=== PATIENT | female | born 1980 | race Caucasian/White ===

== ENCOUNTER → 2016-11-18 | Outpatient (CLI) | payer BC ==
--- NOTE | 2016-11-18 21:04 | MR ---
MRI of the brain with and without contrast HISTORY: Headaches. TECHNIQUE: T1-weighted sagittal, T2, FLAIR, and diffusion axial, postcontrast T1 axial and coronal vi ews of the brain are submitted. CONTRAST: 20 mL MultiHance FINDINGS: There is no evidence of acute ischemia. The ventricles, basal cisterns, and sulci overlying the co nvexities are consistent with the patient's age. There is no mass effect or enhancing mass. Craniocervical junction maintained. Sella turcica has a normal appearance. No evidence of cerebellopo ntine angle mass. Changes of chronic sinusitis. WHITE MATTER: There are approximately 5 focal areas of abnormal signal within the white matter all measuring less t stallings 5 mm. No callosal lesions. No lesions perpendicular to the ventricular system. No enhancing lesio ns. IMPRESSION: 1. No acute intracranial process. 2. Minimal nonspecific white matter changes. No enhancing lesions.
== END | disposition home or self-care (01) ==
LOC: RADMRIMAIN 19:32
PROVIDERS: ATTEND Psychiatry & Neurology Neurology
DX: R90.82 White matter disease, unspecified (principal)
CPT/HCPCS: 70553; A9577

== ENCOUNTER → 2016-12-15 | Outpatient (CLI) | payer BC ==
[2016-12-15 19:42] LABS: Appearance,CSF Clear
[2016-12-19 16:23] LABS: Lyme Specimen Source Not Provided
== END | disposition home or self-care (01) ==
LOC: LABWHC1 13:39
PROVIDERS: ATTEND Psychiatry & Neurology Pain Medicine
DX: H53.2 Diplopia (principal); R53.83 Other fatigue; R90.82 White matter disease, unspecified; R42 Dizziness and giddiness
CPT/HCPCS: 36415; 82040; 82042; 82784; 83873; 83916; 84157; 87476; 88108; 89050

== ENCOUNTER 2017-03-06 19:14 | Emergency (ER) | payer BC ==
[2017-03-06 19:26] VITALS: RESP 18
--- NOTE | 2017-03-06 21:15 | XR ---
EXAMINATION TYPE: XR abdomen 2V DATE OF EXAM: 03/06/2017 COMPARISON: NONE HISTORY: Left flank pain TECHNIQUE: 3 views FINDINGS: Bowel gas pattern is normal. There is no sign of intestinal obstruction or pneumoperitoneum . Fecal pattern is normal. Lung bases are clear. There are no pathologic calcifications. IMPRESSION: Nonacute abdomen.
[2017-03-06 21:19] LABS: Amorphous Sediment,Urine Rare /hpf; Appearance,Urine Cloudy (Clear); Bilirubin,Urine Negative (Negative); Glucose,Urine (UA) Negative (Negative); Ketones,Urine Negative (Negative); Leukocyte Esterase,Urine Negative (Negative); Nitrite,Urine Negative (Negative); Particle Count 9282; Protein,Urine Negative (Negative); Specific Gravity,Urine 1.013 (1.001-1.035); Squamous Epithelial Cell,Urine 1 /hpf (0-4); UA Billing (MACRO vs. MICRO) MICRO; Urobilinogen,Urine <2.0 mg/dL (<2.0)
[2017-03-06 21:21] LABS: Basophils # (A) 0.1 k/uL (0-0.2); Basophils % (A) 1 %; CH 28.4; CHCM 33.2; Eosinophils # (A) 0.3 k/uL (0-0.7); Eosinophils % (A) 3 %; HCT 43.9 % (34.0-46.0); HDW 2.36; HGB 14.7 gm/dL (11.4-16.0); Luc # (Auto) 0.17; Luc % (Auto) 1; Lymphocytes # (A) 3.9 k/uL (1.0-4.8); Lymphocytes % (A) 32 %; MCH 28.7 pg (25.0-35.0); MCHC 33.4 g/dL (31.0-37.0); MCV 85.9 fL (80.0-100.0); Mean Platelet Volume 7.4; Monocytes # (A) 0.4 k/uL (0-1.0); Monocytes % (A) 4 %; Neutrophils # (A) 7.3 k/uL (1.3-7.7); Neutrophils % (A) 60 %; RBC 5.11 m/uL (3.80-5.40); RDW 13.8 % (11.5-15.5); WBC 12.1 k/uL (3.8-10.6); WBC (Perox) 11.88
[2017-03-06 21:29] LABS: ALT 37 U/L (9-52); AST 22 U/L (14-36); Alkaline Phosphatase 65 U/L (38-126); Amylase 37 U/L (30-110); Anion Gap 10 mmol/L; Blood Urea Nitrogen 19 mg/dL (7-17); Calcium 9.6 mg/dL (8.4-10.2); Carbon Dioxide 28 mmol/L (22-30); Chloride 102 mmol/L (98-107); Glucose 90 mg/dL (74-99); Non-African American GFR(MDRD) >60 (>60 ml/min/1.73 sqM); Potassium 4.2 mmol/L (3.5-5.1); Sodium 140 mmol/L (137-145); Total Bilirubin 0.3 mg/dL (0.2-1.3); Total Protein 7.1 g/dL (6.3-8.2)
--- NOTE | 2017-03-06 22:10 | ED ---
General Adult HPI - General Chief complaint: Back Pain/Injury Stated complaint: sent by Dr Harvey for re-evaluation Time Seen by Provider: 03/06/17 19:42 Source: patient, RN notes reviewed Mode of arrival: ambulatory Limitations: no limitations - History of Present Illness Initial comments: chief complaint patient reports noticing some blood in her stool. Denies abdominal pain. Patient does have history of MS and being worked up for same. Patient's also complaining of slight discomfort to the left flank with movement. Blurred vision on again off again for 6 months currently being evaluated by her neurologist. - Related Data Previous Rx's Medication Instructions Recorded Docusate [Colace] 100 mg PO BID #20 capsule 03/06/17 Allergies Allergy/AdvReac Type Severity Reaction Status Date / Time No Known Allergies Allergy Verified 03/06/17 19:43 Review of Systems ROS Statement: Those systems with pertinent positive or pertinent negative responses have been documented in the HPI. review of systems no headache no visual acuity change slight blurry vision. No neck ache no chest pain shortness of breath she has left flank area discomfort increases with twisting turning and palpation to the left flank. No nausea no vomiting no difficulty urinating. She has noticed some blood when she wipes and in the stool. She has had some hard bowel movements lately. Denies any neuro deficits. All systems reviewed. past medical problems significant for being evaluated for MS for the past 6 months. Patient's surgeries include hysterectomy and one ovary removed. Family history cancers include colon, breast and lung. Patient denies ALLERGIES nonsmoker alcohol rarely socially. ROS Other: All systems not noted in ROS Statement are negative. Past Medical History Past Medical History: No Reported History History of Any Multi-Drug Resistant Organisms: None Reported Past Surgical History: Hysterectomy Past Psychological History: No Psychological Hx Reported Smoking Status: Never smoker General Exam - General Exam Comments Initial Comments: General: The patient is awake and alert, in no distress, and does not appear acutely ill. vital signs shows temperature 98.5 pulse 84 respiratory rate 18 pulse ox 97 % room air blood pressure 164/96. The patient's mildly anxious. Eye: Pupils are equal, round and reactive to light, extra-ocular movements are intact ; there is normal conjunctiva bilaterally. No signs of icterus. her physician on again off again for over 6 months. Currently seeing her neurologist. Ears, nose, mouth and throat: There are moist mucous membranes and no oral lesions. Neck: The neck is supple, there is no tenderness . Cardiovascular: There is a regular rate and rhythm. No murmur, rub or gallop is appreciated. Respiratory: Lungs are clear to auscultation, respirations are non-labored, breath sounds are equal. No wheezes, stridor, rales, or rhonchi. Gastrointestinal: Soft, non-distended, non-tender abdomen without masses or organomegaly noted. There is no rebound or guarding present. No CVA tenderness. Bowel sounds are unremarkable.rectal examination done with the help of nurse Asia. Finds a fissure at approximately 12:00. Back: no back pain Musculoskeletal: Normal ROM, no tenderness, There is no pedal edema. There is no calf tenderness or swelling. Sensation intact. Pulses equal bilaterally 2+. Neurological: no neuro deficits Skin: Skin is warm and dry and no rashes or lesions are noted. Limitations: no limitations Course Vital Signs 03/06/17 19:22 Temperature 98.5 F Pulse Rate 84 Respiratory 18 Rate Blood Pressure 164/96 O2 Sat by Pulse 97 Oximetry Medical Decision Making - Medical Decision Making Medical decision-making. The patient's white count 12 hemoglobin 14 hematocrit of 43, potassium 4.2 with a BUN 19 creatinine 0.9 and GFR greater than 60. Amylase lipase negative. Urine clean no signs of infection. I discussed with the patient significance of fissures and how to treat him at home. Discussed the patient's blurred vision with her neurologist Dr. Harvey and she will follow-up with him in office. - Lab Data Result diagrams: 03/06/17 20:59 03/06/17 20:59 Lab Results 03/06/17 03/06/17 03/06/17 Range/Units 20:59 20:59 20:59 WBC 12.1 H (3.8-10.6) k/uL RBC 5.11 (3.80-5.40) m/uL Hgb 14.7 (11.4-16.0) gm/dL Hct 43.9 (34.0-46.0) % MCV 85.9 (80.0-100.0) fL MCH 28.7 (25.0-35.0) pg MCHC 33.4 (31.0-37.0) g/dL RDW 13.8 (11.5-15.5) % Plt Count 263 (150-450) k/uL Neutrophils % 60 % Lymphocytes % 32 % Monocytes % 4 % Eosinophils % 3 % Basophils % 1 % Neutrophils # 7.3 (1.3-7.7) k/uL Lymphocytes # 3.9 (1.0-4.8) k/uL Monocytes # 0.4 (0-1.0) k/uL Eosinophils # 0.3 (0-0.7) k/uL Basophils # 0.1 (0-0.2) k/uL Sodium 140 (137-145) mmol/L Potassium 4.2 (3.5-5.1) mmol/L Chloride 102 (98-107) mmol/L Carbon Dioxide 28 (22-30) mmol/L Anion Gap 10 mmol/L BUN 19 H (7-17) mg/dL Creatinine 0.90 (0.52-1.04) mg/dL Est GFR (MDRD) Af Amer >60 (>60 ml/min/1.73 sqM) Est GFR (MDRD) Non-Af >60 (>60 ml/min/1.73 sqM) Glucose 90 (74-99) mg/dL Calcium 9.6 (8.4-10.2) mg/dL Total Bilirubin 0.3 (0.2-1.3) mg/dL AST 22 (14-36) U/L ALT 37 (9-52) U/L Alkaline Phosphatase 65 (38-126) U/L Total Protein 7.1 (6.3-8.2) g/dL Albumin 4.2 (3.5-5.0) g/dL Amylase 37 (30-110) U/L Lipase 116 (23-300) U/L Urine Color Light Yellow Urine Appearance Cloudy H (Clear) Urine pH 7.0 (5.0-8.0) Ur Specific [place] 1.013 (1.001-1.035) Urine Protein Negative (Negative) Urine Glucose (UA) Negative (Negative) Urine Ketones Negative (Negative) Urine Blood Negative (Negative) Urine Nitrite Negative (Negative) Urine Bilirubin Negative (Negative) Urine Urobilinogen <2.0 (<2.0) mg/dL Ur Leukocyte Esterase Negative (Negative) Ur Squamous Epith Cells 1 (0-4) /hpf Amorphous Sediment Rare H (None) /hpf Disposition Clinical Impression: Perianal fissure Disposition: HOME SELF-CARE Condition: Fair Instructions: Anal Fissure (ED) Additional Instructions: Use hemorrhoidal creams or Tucks pads. Use Colace as directed. Follow-up with your neurologist and family doctor. Increase fluid intake Prescriptions: Docusate [Colace] 100 mg PO BID #20 capsule Referrals: Tano Harvey MD [Primary Care Provider] - 1-2 days Time of Disposition: 22:10
[2017-03-06 22:28] VITALS: BP 139/88; PULSE 82; TEMP 98.3
== END 2017-03-06 22:27 | disposition home or self-care (01) ==
LOC: EC 19:14
DX: K60.2 Anal fissure, unspecified (principal); H53.8 Other visual disturbances; Z90.710 Acquired absence of both cervix and uterus
CPT/HCPCS: 36415; 74020; 80053; 81001; 82150; 83690; 85025; 87086; 99283

== ENCOUNTER → 2017-03-11 | Outpatient (CLI) | payer BC ==
[2017-03-12 00:26] LABS: Cyclic Citrull Pep IgG Unit <0.5 U/mL; Cyclic Citrullinated Pep IgG NEGATIVE (NEGATIVE); RNP AB Interpretation NEGATIVE (NEGATIVE)
== END | disposition home or self-care (01) ==
LOC: LABWHC1 16:24
PROVIDERS: ATTEND Psychiatry & Neurology Pain Medicine
DX: M25.50 Pain in unspecified joint (principal)
CPT/HCPCS: 36415; 86200; 86235

== ENCOUNTER 2017-04-05 10:49 | Emergency (ER) | payer BC ==
--- NOTE | 2017-04-05 11:20 | ED ---
General Adult HPI - General Chief complaint: Recheck/Abnormal Lab/Rx Stated complaint: lump on ribs right side Time Seen by Provider: 04/05/17 10:55 Source: patient, RN notes reviewed Mode of arrival: ambulatory Limitations: no limitations - History of Present Illness Initial comments: 36-year-old female presents to the emergency department with a chief complaint of small nodule to the right side of the abdomen. Patient states like the size of a PE in her fatty tissue. Patient states that he does not hurt to touch is notany drainage or swelling from the area. Patient states she's been chronically worked up for weakness for exhaustion she seen Dr. Harvey only thing she possibly has MS but they are concerned that there could be something more going on. Patient states she felt this small little nodule is wondering if maybe this is the answer to her questions. Patient denies any pain. Patient has a low-grade fevers recently but states that she has had these on and off for the past 2 months. Patient denies any nausea or vomiting. Patient was is very sugar regurgitating symptoms and was hoping that we could find an answer for all of her problems today.Patient denies any recent fever, chills, shortness of breath, chest pain, back pain, abdominal pain, nausea vomiting, numbness or tingling, dysuria or hematuria, constipation or diarrhea, headaches or visual changes, or any other current symptoms. - Related Data Previous Rx's Medication Instructions Recorded Docusate [Colace] 100 mg PO BID #20 capsule 03/06/17 Allergies Allergy/AdvReac Type Severity Reaction Status Date / Time No Known Allergies Allergy Verified 03/06/17 19:43 Review of Systems ROS Statement: Those systems with pertinent positive or pertinent negative responses have been documented in the HPI. ROS Other: All systems not noted in ROS Statement are negative. Past Medical History Past Medical History: No Reported History History of Any Multi-Drug Resistant Organisms: None Reported Past Surgical History: Hysterectomy Past Psychological History: No Psychological Hx Reported Smoking Status: Never smoker General Exam Limitations: no limitations General appearance: alert, in no apparent distress Head exam: Present: atraumatic, normocephalic, normal inspection ENT exam: Present: normal exam, mucous membranes moist Neck exam: Present: normal inspection. Absent: tenderness, meningismus, lymphadenopathy Respiratory exam: Present: normal lung sounds bilaterally. Absent: respiratory distress, wheezes, rales, rhonchi, stridor Cardiovascular Exam: Present: regular rate, normal rhythm, normal heart sounds. Absent: systolic murmur, diastolic murmur, rubs, gallop, clicks GI/Abdominal exam: Present: soft, normal bowel sounds, other (Appears to have a small nodule in the fatty tissue of along the abdominal wall in the right side) . Absent: distended, tenderness, guarding, rebound, rigid Extremities exam: Present: normal inspection, full ROM, normal capillary refill. Absent: tenderness, pedal edema, joint swelling, calf tenderness Neurological exam: Present: alert, oriented X3 Psychiatric exam: Present: normal affect, normal mood Skin exam: Present: warm, dry, intact, normal color. Absent: rash Course Vital Signs 04/05/17 10:52 Temperature 99.0 F Pulse Rate 80 Respiratory 17 Rate Blood Pressure 190/105 O2 Sat by Pulse 98 Oximetry Medical Decision Making - Medical Decision Making 36-year-old female presents to the emergency department with a chief complaint of nodule to the fatty tissue of the abdomen. This time we discussed different etiologies for this. Discussions continue to monitor it. We discussion stop with her PCP. Does not improve she does need to get a biopsy of it. We did discuss return parameters and follow-up and the patient stated that she understood all questions have been answered. She'll be discharged. Disposition Clinical Impression: Mass of soft tissue Disposition: HOME SELF-CARE Condition: Stable Instructions: Soft Tissue Mass (ED) Additional Instructions: Please use medication as discussed. Please follow up with family doctor if symptoms have not improved over the next two days. Please return to the emergency room if your symptoms increase or worsen or for any other concerns. Please follow up with your PCP regarding this lesion. Referrals: Heather García MD [STAFF PHYSICIAN] - 1-2 days Time of Disposition: 11:24
[2017-04-05 12:21] VITALS: BP 125/70; PULSE 74; RESP 20; TEMP 98.7
== END 2017-04-05 12:22 | disposition home or self-care (01) ==
LOC: EC 10:49
DX: R19.09 Other intra-abdominal and pelvic swelling, mass and lump (principal); Z90.710 Acquired absence of both cervix and uterus
CPT/HCPCS: 99283

== ENCOUNTER → 2017-05-06 | Outpatient (CLI) | payer BC ==
[2017-05-07 01:23] LABS: ANA w/Reflex to Titer NEGATIVE (NEGATIVE); Cyclic Citrull Pep IgG Unit <0.5 U/mL; Cyclic Citrullinated Pep IgG NEGATIVE (NEGATIVE); RNP AB Interpretation NEGATIVE (NEGATIVE); Scleroderma SC-70 Ab Interp NEGATIVE (NEGATIVE)
[2017-05-23 10:28] LABS: Mis test requested (Blood) PMSCL Ab
== END | disposition home or self-care (01) ==
LOC: LABWHC1 15:51
PROVIDERS: ATTEND Psychiatry & Neurology Pain Medicine
DX: M25.50 Pain in unspecified joint (principal)
CPT/HCPCS: 36415; 83516; 86038; 86200; 86225; 86235

== ENCOUNTER → 2017-08-05 | Outpatient (CLI) | payer BC ==
[2017-08-05 15:34] LABS: ALT 25 U/L (9-52); AST 15 U/L (14-36); Albumin 4.1 g/dL (3.5-5.0); Alkaline Phosphatase 55 U/L (38-126); Anion Gap 9 mmol/L; Blood Urea Nitrogen 11 mg/dL (7-17); Carbon Dioxide 27 mmol/L (22-30); Chloride 103 mmol/L (98-107); Glucose 90 mg/dL (74-99); Magnesium 2.2 mg/dL (1.6-2.3); Phosphorous 2.9 mg/dL (2.5-4.5); Potassium 3.5 mmol/L (3.5-5.1); Sodium 139 mmol/L (137-145); Total Bilirubin 0.4 mg/dL (0.2-1.3); Total Protein 6.9 g/dL (6.3-8.2)
[2017-08-05 15:41] LABS: Basophils # (A) 0.1 k/uL (0-0.2); Basophils % (A) 1 %; Eosinophils # (A) 0.1 k/uL (0-0.7); Eosinophils % (A) 1 %; HCT 40.6 % (34.0-46.0); HGB 12.7 gm/dL (11.4-16.0); Lymphocytes # (A) 2.3 k/uL (1.0-4.8); Lymphocytes % (A) 27 %; MCH 27.5 pg (25.0-35.0); MCHC 31.3 g/dL (31.0-37.0); MCV 88.1 fL (80.0-100.0); Mean Platelet Volume 8.1; Monocytes # (A) 0.3 k/uL (0-1.0); Monocytes % (A) 4 %; Neutrophils # (A) 5.6 k/uL (1.3-7.7); Neutrophils % (A) 65 %; Platelet Count 255 k/uL (150-450); RBC 4.61 m/uL (3.80-5.40); RDW 15.1 % (11.5-15.5); WBC 8.5 k/uL (3.8-10.6)
[2017-08-09 08:59] LABS: Lyme IgG/IgM 0.3 Index
== END | disposition home or self-care (01) ==
LOC: LABWHC1 15:02
PROVIDERS: ATTEND Family Medicine
DX: G43.109 Migraine with aura, not intractable, without status migrainosus (principal); G61.9 Inflammatory polyneuropathy, unspecified; K58.0 Irritable bowel syndrome with diarrhea
CPT/HCPCS: 36415; 80053; 82306; 82542; 83735; 84100; 85025; 86618

== ENCOUNTER → 2017-10-28 | Outpatient (CLI) | payer BC ==
[2017-10-28 13:42] LABS: Basophils % (A) 0 %; Eosinophils # (A) 0.1 k/uL (0-0.7); Eosinophils % (A) 1 %; HCT 39.7 % (34.0-46.0); HGB 12.9 gm/dL (11.4-16.0); Lymphocytes # (A) 2.5 k/uL (1.0-4.8); Lymphocytes % (A) 28 %; MCH 27.5 pg (25.0-35.0); MCHC 32.5 g/dL (31.0-37.0); MCV 84.6 fL (80.0-100.0); Mean Platelet Volume 8.1; Monocytes # (A) 0.4 k/uL (0-1.0); Monocytes % (A) 5 %; Neutrophils # (A) 5.7 k/uL (1.3-7.7); Neutrophils % (A) 65 %; Platelet Count 296 k/uL (150-450); RDW 13.7 % (11.5-15.5); WBC 8.8 k/uL (3.8-10.6)
[2017-10-28 13:58] LABS: ALT 15 U/L (9-52); AST 14 U/L (14-36); Albumin 4.1 g/dL (3.5-5.0); Alkaline Phosphatase 55 U/L (38-126); Anion Gap 13 mmol/L; Blood Urea Nitrogen 15 mg/dL (7-17); Calcium 9.9 mg/dL (8.4-10.2); Carbon Dioxide 27 mmol/L (22-30); Chloride 105 mmol/L (98-107); Glucose 92 mg/dL (74-99); Sodium 145 mmol/L (137-145); Total Bilirubin 0.3 mg/dL (0.2-1.3)
[2017-10-28 14:15] LABS: T4, Free (Free Thyroxine) 0.87 ng/dL (0.78-2.19)
[2017-10-28 19:20] LABS: Vitamin D 25 Hydroxy 27.9 ng/mL (30.0-100.0)
[2017-10-28 19:39] LABS: Folate, Serum 19.6 ng/mL
[2017-10-28 20:42] LABS: Hepatitis A Antibody IgM Non-Reactive (Non-Reactive); Hepatitis B Core IgM Non-Reactive (Non-Reactive)
[2017-10-28 21:01] LABS: HIV AB P24 Non-Reactive (Non-Reactive); HIV P24 AG Non-Reactive (Non-Reactive)
[2017-10-28 21:46] LABS: Hemoglobin A1C 5.3 % (4.0-6.0)
[2017-11-01 06:46] LABS: Vitamin B1 59 ug/L (38-122)
== END | disposition home or self-care (01) ==
LOC: LABWHC1 13:16
PROVIDERS: ATTEND Psychiatry & Neurology Pain Medicine
DX: R55 Syncope and collapse (principal); R42 Dizziness and giddiness; R53.83 Other fatigue; R47.01 Aphasia; R51 Headache
CPT/HCPCS: 36415; 80053; 80074; 82306; 82607; 82746; 83036; 84207; 84425; 84439; 84443; 84481; 84591; 85025; 87390

== ENCOUNTER → 2017-11-04 | Outpatient (CLI) | payer BC ==
[2017-11-04 17:37] LABS: Cholesterol 212 mg/dL (<200); HDL Cholesterol 46 mg/dL (40-60); LDL Cholesterol,Calculated 136 mg/dL (0-99); Triglycerides 150 mg/dL (<150)
== END | disposition home or self-care (01) ==
LOC: LABWHC1 16:59
PROVIDERS: ATTEND Family Medicine
DX: Z00.00 Encounter for general adult medical examination without abnormal findings (principal); K58.0 Irritable bowel syndrome with diarrhea; G61.9 Inflammatory polyneuropathy, unspecified
CPT/HCPCS: 36415; 80061

== ENCOUNTER → 2017-11-10 | Outpatient (CLI) | payer BC ==
--- NOTE | 2017-11-10 22:06 | MR ---
PRE AND POSTCONTRAST ENHANCED MRI OF THE BRAIN: CLINICAL HISTORY:R55 Syncope and collapse CONTRAST: Gadavist 10 cc comparison 11/18/2016 Multiplanar and multispin-echo imaging of the brain was performed both before and after the administr ation of contrast. The ventricles, basal cisterns and sulci overlying the cerebral convexities are within normal limits. There is no evidence for midline shift or mass effect. Acute intracranial hemorrhage or extra-axial collection is not evident. WHITE MATTER: There are approximately 5 focal areas of abnormal signal within the white matter all me asuring less than 5 mm. No callosal lesions. No lesions perpendicular to the ventricular system. No e nhancing lesions. Following contrast administration, there is no evidence for pathologic enhancement or enhancing mass. The paranasal sinuses and mastoid air cells are well-aerated. IMPRESSION: Stable nonspecific white matter changes. Remainder of the examination is stable.
== END | disposition home or self-care (01) ==
LOC: RADMRIMAIN 20:26
PROVIDERS: ATTEND Psychiatry & Neurology Pain Medicine
DX: R90.89 Other abnormal findings on diagnostic imaging of central nervous system (principal); R55 Syncope and collapse
CPT/HCPCS: 70553; A9581

== ENCOUNTER → 2017-11-14 | Outpatient (CLI) | payer BC ==
[2017-11-18 14:15] LABS: IgG - CSF 1.2 mg/dL (0.0 - 3.4); IgG/Albumin Index (CSF) 0.54 (0.00 - 0.77); Immunoglobulin G 825 mg/dL (700 - 1600)
== END | disposition home or self-care (01) ==
LOC: LABWHC1 08:35
PROVIDERS: ATTEND Psychiatry & Neurology Pain Medicine
DX: R42 Dizziness and giddiness (principal); R53.83 Other fatigue; R55 Syncope and collapse
CPT/HCPCS: 36415; 82040; 82042; 82784; 83916

== ENCOUNTER 2017-12-02 03:36 | Emergency (ER) | payer BC ==
[2017-12-02 03:42] VITALS: RESP 16
--- NOTE | 2017-12-02 04:05 | ED ---
Abdominal Pain HPI - General Chief Complaint: Abdominal Pain Stated Complaint: Abdominal Pain Time Seen by Provider: 12/02/17 03:50 Source: patient Mode of arrival: ambulatory Limitations: no limitations - History of Present Illness MD Complaint: abdominal pain Onset/Timin -: days(s) Location: suprapubic Radiation: none Migration to: no migration Severity: moderate Quality: cramping (Like labor pains) Consistency: intermittent Improves With: nothing Worsens With: nothing Associated Symptoms: dysuria - Related Data Home Medications Medication Instructions Recorded Confirmed Cholecalciferol [Vitamin D3] 2,000 unit PO DAILY 04/05/17 04/05/17 Oxybutynin Xl [Ditropan Xl] 5 mg PO DAILY 04/05/17 04/05/17 predniSONE 10 mg PO DAILY 04/05/17 04/05/17 Previous Rx's Medication Instructions Recorded Docusate [Colace] 100 mg PO BID #20 capsule 03/06/17 Ciprofloxacin HCl [Cipro] 500 mg PO Q12HR #14 tablet 12/02/17 Allergies Allergy/AdvReac Type Severity Reaction Status Date / Time No Known Allergies Allergy Verified 12/02/17 03:42 Review of Systems ROS Statement: Those systems with pertinent positive or pertinent negative responses have been documented in the HPI. ROS Other: All systems not noted in ROS Statement are negative. Constitutional: Denies: fever, chills, weakness Respiratory: Denies: cough, dyspnea Cardiovascular: Denies: chest pain, palpitations Gastrointestinal: Reports: abdominal pain. Denies: vomiting, diarrhea, constipation Genitourinary: Reports: dysuria, frequency. Denies: hematuria Musculoskeletal: Denies: back pain Skin: Denies: rash Neurological: Denies: headache Past Medical History Past Medical History: No Reported History History of Any Multi-Drug Resistant Organisms: None Reported Past Surgical History: Hysterectomy Past Psychological History: No Psychological Hx Reported Smoking Status: Never smoker Past Alcohol Use History: Occasional Past Drug Use History: None Reported General Exam Limitations: no limitations General appearance: alert, in no apparent distress, obese Head exam: Present: atraumatic, normocephalic Eye exam: Present: normal appearance ENT exam: Present: mucous membranes dry Respiratory exam: Present: normal lung sounds bilaterally. Absent: respiratory distress, wheezes, rales, rhonchi, stridor Cardiovascular Exam: Present: regular rate, normal rhythm, normal heart sounds. Absent: systolic murmur, diastolic murmur, rubs, gallop GI/Abdominal exam: Present: soft. Absent: distended, tenderness, guarding, rebound, rigid, mass, pulsatile mass Extremities exam: Present: normal inspection, normal capillary refill. Absent: pedal edema, calf tenderness Neurological exam: Present: alert Skin exam: Present: warm, dry, intact, normal color. Absent: rash Course Vital Signs 12/02/17 03:40 Temperature 98.4 F Pulse Rate 98 Respiratory 16 Rate Blood Pressure 169/101 O2 Sat by Pulse 98 Oximetry Medical Decision Making - Lab Data Lab Results 12/02/17 12/02/17 Range/Units 03:46 03:46 Urine Color Light Yellow Urine Appearance Cloudy H (Clear) Urine pH 6.5 (5.0-8.0) Ur Specific [place] 1.013 (1.001-1.035) Urine Protein 1+ H (Negative) Urine Glucose (UA) Negative (Negative) Urine Ketones Negative (Negative) Urine Blood Moderate H (Negative) Urine Nitrite Negative (Negative) Urine Bilirubin Negative (Negative) Urine Urobilinogen <2.0 (<2.0) mg/dL Ur Leukocyte Esterase Large H (Negative) Urine RBC 160 H (0-5) /hpf Urine WBC >182 H (0-5) /hpf Urine WBC Clumps Occasional H (None) /hpf Ur Squamous Epith Cells <1 (0-4) /hpf Urine Bacteria Rare H (None) /hpf Urine Mucus Rare H (None) /hpf Urine HCG, Qual Not Detected (Not Detectd) Disposition Clinical Impression: Urinary tract infection Disposition: HOME SELF-CARE Condition: Good Instructions: Urinary Tract Infection in Women (ED) Prescriptions: Ciprofloxacin HCl [Cipro] 500 mg PO Q12HR #14 tablet Is patient prescribed a controlled substance at d/c from ED?: No Referrals: Naseem Childers MD [Primary Care Provider] - 1-2 days
[2017-12-02 04:21] LABS: Appearance,Urine Cloudy (Clear); Bacteria,Urine Rare /hpf; Bilirubin,Urine Negative (Negative); Blood,Urine Moderate (Negative); Color,Urine Light Yellow; Glucose,Urine (UA) Negative (Negative); Ketones,Urine Negative (Negative); Leukocyte Esterase,Urine Large (Negative); Mucus,Urine Rare /hpf; Nitrite,Urine Negative (Negative); PH, Urine 6.5 (5.0-8.0); Protein,Urine 1+ (Negative); RBC,Urine 160 /hpf (0-5); Specific Gravity,Urine 1.013 (1.001-1.035); Squamous Epithelial Cell,Urine <1 /hpf (0-4); Urobilinogen,Urine <2.0 mg/dL (<2.0); WBC,Urine >182 /hpf (0-5)
[2017-12-02] MEDS ORDERED: LEVOFLOXACIN 750 MG TAB PO STA (04:48)
[2017-12-02 05:04] VITALS: BP 156/83; PULSE 86; TEMP 99.5
== END 2017-12-02 05:02 | disposition home or self-care (01) ==
LOC: EC 03:36
DX: N39.0 Urinary tract infection, site not specified (principal); E66.9 Obesity, unspecified; Z79.52 Long term (current) use of systemic steroids; Z79.899 Other long term (current) drug therapy; Z68.41 Body mass index [BMI] 40.0-44.9, adult
CPT/HCPCS: 81001; 81025; 87077; 87086; 87186; 99284

== ENCOUNTER → 2017-12-08 | Outpatient (CLI) | payer BC ==
[2017-12-09 00:24] LABS: Anti-DNA, DS unit <1.0 IU/mL; DNA Double-Stranded NEGATIVE (NEGATIVE); RNP 0.4 AI; Scleroderma SC-70 Ab <0.2 AI
[2017-12-09 00:25] LABS: Cyclic Citrullinated Pep IgG NEGATIVE (NEGATIVE)
== END | disposition home or self-care (01) ==
LOC: LABWHC1 16:36
PROVIDERS: ATTEND Psychiatry & Neurology Neurology
DX: R53.83 Other fatigue (principal); M25.50 Pain in unspecified joint
CPT/HCPCS: 36415; 83516; 86038; 86200; 86225; 86235

== ENCOUNTER → 2018-02-27 | Outpatient (CLI) | payer BC ==
--- NOTE | 2018-02-27 11:43 | FL ---
Modified barium swallow. HISTORY: Dysphagia. Modified barium swallow was performed with the department of speech pathology. The patient was prese nted with various consistencies of barium. There is no evidence for aspiration or penetration. Full report is to follow from the department of speech pathology. Impression: Normal study.
== END | disposition home or self-care (01) ==
LOC: RADFLMAIN 11:07
PROVIDERS: ATTEND Psychiatry & Neurology Neurology
DX: R47.02 Dysphasia (principal)
CPT/HCPCS: 74230

== ENCOUNTER 2018-05-09 11:46 | Emergency (ER) | payer BC, OTHER ==
[2018-05-09 11:53] VITALS: RESP 18
[2018-05-09] MEDS ORDERED: SODIUM CHLORIDE 0.9% 1,000 ML IV STA (12:11)
[2018-05-09] MEDS ORDERED: diphenhydrAMINE 50 MG/ML 1 ML VIAL IVP STA (12:11)
[2018-05-09] MEDS ORDERED: METOCLOPRAMIDE 5 MG/ML 2 ML VIAL IVP STA (12:11)
--- NOTE | 2018-05-09 12:33 | ED ---
General Adult HPI - General Chief complaint: Headache Stated complaint: headache, facial numbness Time Seen by Provider: 05/09/18 11:56 Source: patient, RN notes reviewed Mode of arrival: ambulatory Limitations: no limitations - History of Present Illness Initial comments: Patient's a 38-year-old female with significant past medical history for migraines, presenting to the emergency room today with a chief complaint of migraine headache 9 days. Patient does admit that headache is located mostly behind the right eye. Patient states that it's been present for 9 days she's tried her Imitrex at home along with Compazine and Toradol. She states she's had little relief. States the headache is consistent with migraine headaches that she's had in the past. She states is also photosensitivity with nausea and vomiting. She states the symptoms are consistent. She does admit that migraine headache usually does not last 9 days. She does admit that she's had some tingling down to the hands she's had in the past and is currently being worked up for MS. She states that she is also felt some numbness sensation to the right face that started yesterday approximately 6 PM. She denies any other complaints at this time. Patient denies any recent fever, chills, shortness of breath, chest pain, back pain, abdominal pain, dysuria or hematuria, constipation or diarrhea, or any other complaints. - Related Data Home Medications Medication Instructions Recorded Confirmed Acetaminophen [Tylenol Extra 500 mg PO Q6H PRN 05/09/18 05/09/18 Strength] Armodafinil [Nuvigil] 150 mg PO QAM 05/09/18 05/09/18 DULoxetine HCL [Cymbalta] 60 mg PO DAILY 05/09/18 05/09/18 Gabapentin [Neurontin] 600 mg PO BID 05/09/18 05/09/18 Ibuprofen [Motrin Ib] 800 mg PO Q6H PRN 05/09/18 05/09/18 Ketorolac [Toradol] 10 mg PO DAILY PRN 05/09/18 05/09/18 Multivitamin,Therapeutic [Thera] 1 tab PO DAILY 05/09/18 05/09/18 Prochlorperazine [Compazine] 10 mg PO DAILY PRN 05/09/18 05/09/18 SUMAtriptan SUCCINATE [Imitrex] 100 mg PO DAILY PRN 05/09/18 05/09/18 Allergies Allergy/AdvReac Type Severity Reaction Status Date / Time Iodinated Contrast- Oral and Allergy Anaphylaxis Verified 05/09/18 12:35 IV Dye walnut Allergy Anaphylaxis Verified 05/09/18 12:35 Review of Systems ROS Statement: Those systems with pertinent positive or pertinent negative responses have been documented in the HPI. ROS Other: All systems not noted in ROS Statement are negative. Past Medical History Past Medical History: No Reported History Additional Past Medical History / Comment(s): migraines, undergoing testing for MS History of Any Multi-Drug Resistant Organisms: MRSA Date of last positivie culture/infection: 2007; bilateral hands Past Surgical History: Hysterectomy Past Psychological History: No Psychological Hx Reported Smoking Status: Never smoker Past Alcohol Use History: None Reported, Occasional Past Drug Use History: None Reported General Exam - General Exam Comments Initial Comments: General: The patient is awake and alert, in no distress, and does not appear acutely ill. Eye: Pupils are equal, round and reactive to light. Extra-ocular movements are intact. No nystagmus. There is normal conjunctiva bilaterally. No signs of icterus. Ears, nose, mouth and throat: There are moist mucous membranes and no oral lesions. Neck: The neck is supple, there is no tenderness or JVD. Cardiovascular: There is a regular rate and rhythm. No murmur, rub or gallop is appreciated. Respiratory: Lungs are clear to auscultation, respirations are non-labored, breath sounds are equal. No wheezes, stridor, rales, or rhonchi. Gastrointestinal: Soft, non-distended, non-tender abdomen without masses or organomegaly noted. There is no rebound or guarding present. No CVA tenderness. Musculoskeletal: Normal ROM, no tenderness. Sensation intact. Strength 5/5. Pulses equal bilaterally 2+. Neurological: A&O x 3. CN II-XII intact, There are no obvious motor or sensory deficits. Coordination appears grossly intact. Speech is normal. Skin: Skin is warm and dry and no rashes or lesions are noted. Psychiatric: Cooperative, appropriate mood & affect, normal judgment. Limitations: no limitations Course Vital Signs 05/09/18 11:49 Temperature 98.2 F Pulse Rate 113 H Respiratory 18 Rate Blood Pressure 146/102 O2 Sat by Pulse 99 Oximetry Medical Decision Making - Medical Decision Making Case discussed in detail with attending physician Dr. Costa. Patient reexamined at this time shows no signs of distress. She is resting comfortable. Does note improvement of her headache after Reglan, Benadryl here in emergency room. A CT of the head is negative for any acute abnormalities. Patient that she's had some numbness and tingling down to the hand with her workup for MS in the past. She does admit that she has had some numbness to the right symphysis yesterday (p.m. She states she was improving here in emergency room. This time patient will be discharged home. She is given dose of Decadron some Toradol prior to discharge. She is advised follow-up with family doctor also her neurologist. Patient advised return if symptoms increase worsen. - Lab Data Result diagrams: 05/09/18 12:41 05/09/18 12:41 Lab Results 05/09/18 05/09/18 05/09/18 Range/Units 12:41 12:41 12:41 WBC 8.8 (3.8-10.6) k/uL RBC 4.82 (3.80-5.40) m/uL Hgb 13.2 (11.4-16.0) gm/dL Hct 41.9 (34.0-46.0) % MCV 87.0 (80.0-100.0) fL MCH 27.5 (25.0-35.0) pg MCHC 31.6 (31.0-37.0) g/dL RDW 13.7 (11.5-15.5) % Plt Count 314 (150-450) k/uL Neutrophils % 78 % Lymphocytes % 16 % Monocytes % 4 % Eosinophils % 1 % Basophils % 0 % Neutrophils # 6.9 (1.3-7.7) k/uL Lymphocytes # 1.4 (1.0-4.8) k/uL Monocytes # 0.3 (0-1.0) k/uL Eosinophils # 0.1 (0-0.7) k/uL Basophils # 0.0 (0-0.2) k/uL Carbon Monoxide, Quant 1.6 (<10.0) % Sodium 143 (137-145) mmol/L Potassium 4.2 (3.5-5.1) mmol/L Chloride 107 (98-107) mmol/L Carbon Dioxide 28 (22-30) mmol/L Anion Gap 8 mmol/L BUN 14 (7-17) mg/dL Creatinine 0.59 (0.52-1.04) mg/dL Est GFR (CKD-EPI)AfAm >90 (>60 ml/min/1.73 sqM) Est GFR (CKD-EPI)NonAf >90 (>60 ml/min/1.73 sqM) Glucose 101 H (74-99) mg/dL Calcium 9.2 (8.4-10.2) mg/dL Total Bilirubin 0.5 (0.2-1.3) mg/dL AST 24 (14-36) U/L ALT 21 (9-52) U/L Alkaline Phosphatase 60 (38-126) U/L Total Protein 7.2 (6.3-8.2) g/dL Albumin 4.0 (3.5-5.0) g/dL Disposition Clinical Impression: Migraine Disposition: HOME SELF-CARE Condition: Good Instructions: Migraine Headache (ED) Additional Instructions: Please follow-up with neurologist/family doctor in the next 2 days of symptoms have not improved. Please return to emergency room if the symptoms increase or worsen or for any other concerns. Is patient prescribed a controlled substance at d/c from ED?: No Referrals: Naseem Childers MD [Primary Care Provider] - 1-2 days Tano Harvey MD [STAFF PHYSICIAN] - 1-2 days Time of Disposition: 14:59
[2018-05-09 13:02] LABS: Basophils % (A) 0 %; Eosinophils # (A) 0.1 k/uL (0-0.7); Eosinophils % (A) 1 %; HCT 41.9 % (34.0-46.0); HGB 13.2 gm/dL (11.4-16.0); Lymphocytes # (A) 1.4 k/uL (1.0-4.8); Lymphocytes % (A) 16 %; MCH 27.5 pg (25.0-35.0); MCHC 31.6 g/dL (31.0-37.0); Mean Platelet Volume 7.3; Monocytes # (A) 0.3 k/uL (0-1.0); Monocytes % (A) 4 %; Neutrophils # (A) 6.9 k/uL (1.3-7.7); Neutrophils % (A) 78 %; Platelet Count 314 k/uL (150-450); RBC 4.82 m/uL (3.80-5.40); RDW 13.7 % (11.5-15.5); WBC 8.8 k/uL (3.8-10.6)
[2018-05-09 13:09] LABS: ALT 21 U/L (9-52); AST 24 U/L (14-36); Alkaline Phosphatase 60 U/L (38-126); Anion Gap 8 mmol/L; Blood Urea Nitrogen 14 mg/dL (7-17); Calcium 9.2 mg/dL (8.4-10.2); Carbon Dioxide 28 mmol/L (22-30); Chloride 107 mmol/L (98-107); Glucose 101 mg/dL (74-99); Potassium 4.2 mmol/L (3.5-5.1); Sodium 143 mmol/L (137-145); Total Bilirubin 0.5 mg/dL (0.2-1.3); Total Protein 7.2 g/dL (6.3-8.2)
--- NOTE | 2018-05-09 13:28 | CT ---
EXAMINATION TYPE: CT brain wo con DATE OF EXAM: 05/09/2018 COMPARISON: MRI brain dated 11/10/2017 HISTORY: Headache for [address] DLP: 981.4 mGycm. Automated Exposure Control for Dose Reduction was Utilized. TECHNIQUE: CT scan of the head is performed without contrast. FINDINGS: There is no acute intracranial hemorrhage, mass effect, or midline shift identified. The known 5 punctate foci of white matter change are better evaluated with MRI and not seen well on CT. N o suspicious extra-axial fluid collection. The ventricles and sulci are within normal limits in size. The globes are intact and the visualized sinuses are clear. IMPRESSION: No acute intracranial hemorrhage, mass effect, or midline shift is seen.
[2018-05-09] MEDS ORDERED: DEXAMETHASONE SOD PHOSPHATE 10 MG/ML 1 ML VIAL IV STA (14:57)
[2018-05-09] MEDS ORDERED: KETOROLAC 30 MG/ML 1 ML VIAL IVP STA (14:57)
[2018-05-09 15:37] VITALS: BP 149/100; PULSE 94; TEMP 98.3
== END 2018-05-09 15:48 | disposition home or self-care (01) ==
LOC: EC 11:46
DX: G43.909 Migraine, unspecified, not intractable, without status migrainosus (principal); R20.0 Anesthesia of skin; R20.2 Paresthesia of skin; Z91.018 Allergy to other foods; Z91.041 Radiographic dye allergy status; Z79.899 Other long term (current) drug therapy; Z86.14 Personal history of Methicillin resistant Staphylococcus aureus infection
CPT/HCPCS: 99284; 96374; 96375 ×3; 96361; 36415; 80053; 82375; 85025; 70450; J1200; J1100; J2765; J1885

== ENCOUNTER → 2018-10-13 | Outpatient (CLI) | payer BC, OTHER ==
[2018-10-13 11:48] LABS: HCT 39.6 % (34.0-46.0); HGB 12.7 gm/dL (11.4-16.0); MCH 28.6 pg (25.0-35.0); MCHC 32.2 g/dL (31.0-37.0); MCV 88.9 fL (80.0-100.0); Mean Platelet Volume 7.4; Platelet Count 255 k/uL (150-450); RBC 4.46 m/uL (3.80-5.40); RDW 13.4 % (11.5-15.5); Reticulocyte % 1.1 % (0.5-2.0); WBC 7.4 k/uL (3.8-10.6)
[2018-10-13 17:28] LABS: Iron Saturation 19.35 (12.00-45.00)
[2018-10-13 17:38] LABS: Vitamin D 25 Hydroxy 33.5 ng/mL (30.0-100.0)
[2018-10-13 17:41] LABS: Folate, Serum 16.4 ng/mL
[2018-10-13 17:43] LABS: Albumin 4.5 g/dL (3.80-4.90); Albumin/Globulin Ratio 2.25 (1.60-3.17); Calcium 9.6 mg/dL (8.7-10.3); Potassium 4.7 mmol/L (3.5-5.5); Total Bilirubin 0.2 mg/dL (0.3-1.2); Total Protein 6.5 g/dL (6.2-8.2)
[2018-10-13 18:09] LABS: T4, Free (Free Thyroxine) 0.8 ng/dL (0.80-1.80)
[2018-10-13 22:29] LABS: ACTH 8.27 pg/mL (0.00-45.99)
== END | disposition home or self-care (01) ==
LOC: LABWHC1 10:10
PROVIDERS: ATTEND Psychiatry & Neurology Pain Medicine
DX: D64.9 Anemia, unspecified (principal); R53.83 Other fatigue; E55.9 Vitamin D deficiency, unspecified; Z51.81 Encounter for therapeutic drug level monitoring
CPT/HCPCS: 36415; 80053; 82024; 82306; 82607; 82668; 82728; 82746; 83540; 83550; 84439; 84443; 84466; 84481; 85027; 85045

== ENCOUNTER → 2018-10-19 | Outpatient (CLI) | payer BC, OTHER | END | disposition home or self-care (01) | LOC: LABWHC1 12:44 | PROVIDERS: ATTEND Psychiatry & Neurology Pain Medicine | DX: E55.9 Vitamin D deficiency, unspecified (principal); R53.83 Other fatigue; Z51.81 Encounter for therapeutic drug level monitoring | CPT/HCPCS: 36415; 82530 ==

== ENCOUNTER → 2018-12-01 | Outpatient (CLI) | payer BC, OTHER | END | disposition home or self-care (01) | LOC: LABWHC1 11:47 | PROVIDERS: ATTEND Psychiatry & Neurology Pain Medicine | DX: H57.10 Ocular pain, unspecified eye (principal); R29.810 Facial weakness | CPT/HCPCS: 36415; 83519 ==

== ENCOUNTER → 2019-01-19 | Outpatient (CLI) | payer BC, OTHER | END | disposition home or self-care (01) | LOC: LABWHC1 09:42 | PROVIDERS: ATTEND Psychiatry & Neurology Pain Medicine | DX: R55 Syncope and collapse (principal); R53.83 Other fatigue; M25.50 Pain in unspecified joint | CPT/HCPCS: 36415; 82550; 86618 ==